=== PATIENT | male | born 1945 | race Caucasian/White ===

== ENCOUNTER 2022-07-15 10:30 | Emergency (ER) | payer OTHER, SELFPAY ==
[2022-07-15 10:44] VITALS: BP 143/60; PULSE 69; RESP 18; TEMP 36.8; O2SAT 100
--- NOTE | 2022-07-15 10:52 | ED.WOUNDLAC ---
HPI - Wound/Laceration General Chief Complaint: Wound/Laceration Stated Complaint: laceration lt hand Time Seen by Provider: 07/15/22 10:35 Source: patient Mode of arrival: ambulatory Limitations: no limitations History of Present Illness HPI narrative: Patient is a 76-year-old male who presents with left hand skin tear. States he had hand on a wall on Thursday and suffer an injury. Patient has been cleaning with hydrogen peroxide, using triple antibiotic ointment and keeping it covered. Patient wants to ensure there is no infection. Patient states he gets skin tears very easily. Denies any swelling, pain, redness or stiffness and left hand. Denies fever, chills. Related Data Allergies Allergy/AdvReac Type Severity Reaction Status Date / Time No Known Allergies Allergy Verified 07/15/22 10:44 Review of Systems Review of Systems: All systems reviewed & are unremarkable except as noted in HPI and below Constitutional: Constitutional: Denies body ache(s), Denies chills, Denies fatigue, Denies fever(s), Denies headache(s), Denies malaise and Denies weakness Eyes: Eyes: Denies blurry vision, Denies irritation and Denies loss of vision ENT: Denies otalgia, Denies headache(s), Denies nasal discharge, Denies sinus pain and Denies sore throat Cardiovascular: Cardiovascular: Denies chest pain, Denies irregular heart rhythm and Denies dyspnea Respiratory: Respiratory: Denies dyspnea Gastrointestinal: Gastrointestinal: Denies abdominal pain, Denies melena, Denies hematochezia, Denies diarrhea, Denies nausea and Denies vomiting Musculoskeletal: Musculoskeletal: Denies back pain, Denies myalgias and Denies arthralgias Integumentary/Breasts: Skin/Breast: Denies pruritus, Denies rash and Reports skin ulcer Neurologic: Denies headache(s), Denies loss of vision and Denies weakness Psychiatric: Psychiatric: Reports no additional psychiatric complaints Endocrine: Endocrine: Denies fatigue PMFSH Past Medical History Medical History (Updated 07/15/22 @ 11:03 by Salud Park APRN) HTN (hypertension) Vitamin D deficiency Family History Family History Father Diabetes mellitus, Onset Age: 74 Family history of diabetes mellitus in first degree relative Mother Patient's mother is , Onset Age: 80 Other Family history of cardiovascular disease Family history of malignant neoplasm Hypertension Social History Social History Smoking status: Former smoker Smoking end date: 03/23/89 Alcohol intake: current Comments At time of signature, agree with nursing past medical, surgical, social and family history. There is no relevant family history pertinent to the presenting complaint. Exam Const: General: cooperative, healthy appearing, comfortable, no acute distress and well nourished Nutritional Appearance: well nourished Orientation/consciousness: patient oriented x3 Limitations: no limitations HENMT: Head: normal to inspection, normocephalic and atraumatic Ears: hearing grossly normal bilaterally and external ears normal Face/Nose/Sinus: Normal external nose present, normal facial exam and face symmetric Face and sinus: normal facial exam and face symmetric Mouth: Yes lip normal Eyes: General: appearance normal, both eyes and all related structures Alignment and Position: alignment normal and position normal Periorbital: periorbital findings normal Eyelids: eyelids normal Pupils: Equal, round and reactive pupils present EOM: EOMs intact bilaterally Neck: Neck: normal visual inspection, full ROM and supple Chest: Chest palpation & inspection: normal inspection of the chest Resp: Effort & Inspection: normal respiratory effort and able to speak in complete sentences Auscultation: clear to auscultation bilaterally Cardio: Rate: regular rate Rhythm: regular rhythm Heart sounds:
== END 2022-07-15 11:05 | disposition home or self-care (01) ==
PROVIDERS: Emergency Provider Nurse Practitioner Family; PCP Emergency Medicine
DX: S61.412A Laceration without foreign body of left hand, initial encounter (principal); W22.09XA Striking against other stationary object, initial encounter; Z87.891 Personal history of nicotine dependence; I10 Essential (primary) hypertension; E55.9 Vitamin D deficiency, unspecified
CPT/HCPCS: 99212; G0463

== ENCOUNTER 2022-09-28 10:27 | Emergency (ER) | payer OTHER, SELFPAY ==
[2022-09-28 10:56] VITALS: BP 135/49; PULSE 77; RESP 18; TEMP 36.5; O2SAT 100
--- NOTE | 2022-09-28 11:37 | ED.GENADULT ---
HPI - General Adult General Chief complaint: Skin/Abscess/Foreign Body Stated complaint: rash Time Seen by Provider: 09/28/22 11:37 Source: patient Mode of arrival: ambulatory Limitations: no limitations History of Present Illness HPI narrative: 76-year-old male patient presents to the [facility] with complaints of a rash the left ankle for the past 5 days. Patient denies coming into contact with anything that he has been allergic to. Denies any exposure to poison jj or plans. Patient unsure where he has got it from. Patient states he has been applying antibiotic ointment denies taking any Benadryl or any antihistamines. Denies putting on any anti-itch cream. Denies fevers, body aches or chills. Patient states it is itchy. Related Data Home Medications Medication Instructions Recorded Confirmed vit C 250 mg-vit E 90 mg-zinc 40 1 tablet PO BID 07/29/22 09/28/22 mg-copper 1 [id number] capsule (PreserVision AREDS-2) Allergies Allergy/AdvReac Type Severity Reaction Status Date / Time No Known Allergies Allergy Verified 09/28/22 11:18 Review of Systems Review of Systems: CONSTITUTIONAL: Denies fever, chills, or sweats. EYES: Denies visual changes, redness, or discharge. ENT: Denies rhinorrhea, congestion, sore throat, or otalgia. CARDIOVASCULAR: Denies chest pain, palpitations, or edema. RESPIRATORY: Denies cough or dyspnea. GASTROINTESTINAL: Denies abdominal pain, nausea, vomiting, or diarrhea. GENITOURINARY: Denies dysuria or hematuria. SKIN: Positive rash or itching to left ankle x5 days MUSCULOSKELETAL: Denies back pain, joint pain, or myalgia. NEUROLOGIC: Denies headache, numbness, or weakness. PSYCHIATRIC: Denies anxiety or depression. [facility] Past Medical History Medical History (Updated 09/28/22 @ 11:43 by STACEY Zheng) Cataracts, bilateral Essential (primary) hypertension HTN (hypertension) Raynaud's syndrome without gangrene Solitary pulmonary nodule Vitamin D deficiency Vitamin D deficiency Family History Family History Father Diabetes mellitus, Onset Age: 74 Family history of diabetes mellitus in first degree relative Mother Patient's mother is , Onset Age: 80 Other Family history of cardiovascular disease Family history of malignant neoplasm Hypertension Social History Social History Smoking status: Former smoker Smoking end date: 03/23/89 Alcohol intake: current Comments At the time of my signature I agree with nursing past medical history, surgical, social, and family history. There is no relevant family history pertinent to the presenting complaint. Exam Narrative: GENERAL: Well-appearing, well-nourished, and in no acute distress. HEAD: Normocephalic, atraumatic. EYES: PERRLA and EOMI. ENT: Nares clear, no rhinorrhea or epistaxis. Mucous membranes moist. NECK: Supple. No lymphadenopathy CHEST: Clear to auscultation. No respiratory distress. HEART: Regular rate and rhythm. No murmur heard. Normal peripheral pulses. ABDOMEN: Soft, nontender, nondistended, normal active bowel sounds. EXTREMITIES: Normal range of motion. No edema. SKIN: Warm, dry, round erythemic scab like rash localized to the left medial ankle with satellite areas noted. No open wounds or drainage noted. NEURO: No focal deficits. Alert and oriented x3. Course Course Level of Care: Express Care Visit Vital Signs Vital signs: Vital Signs Temperature 36.5 C 09/28/22 10:56 Pulse Rate 77 09/28/22 10:56 Respiratory Rate 18 09/28/22 10:56 Blood Pressure 135/49 L 09/28/22 10:56 Pulse Oximetry 100 09/28/22 10:56 Oxygen Delivery Room Air 09/28/22 10:56 Temperature 36.5 C 09/28/22 10:56 Pulse Rate 77 09/28/22 10:56 Respiratory Rate 18 09/28/22 10:56 Blood Pressure 135/49 L 09/28/22 10:56 Pulse Oximetry
== END 2022-09-28 11:54 | disposition home or self-care (01) ==
PROVIDERS: Emergency Provider Nurse Practitioner Family; PCP Emergency Medicine
DX: R21 Rash and other nonspecific skin eruption (principal); Z87.891 Personal history of nicotine dependence; I10 Essential (primary) hypertension; I73.00 Raynaud's syndrome without gangrene; H26.9 Unspecified cataract; E55.9 Vitamin D deficiency, unspecified
CPT/HCPCS: 99213; G0463